=== PATIENT | male | born 1975 | race Caucasian/White ===

== ENCOUNTER 2017-04-28 11:00 | Emergency (ER) | payer BC ==
[2017-04-28] MEDS ORDERED: METOPROLOL TARTRATE 5 MG/5 ML SOL IV ONE ×2 (11:10)
[2017-04-28] MEDS ORDERED: METOPROLOL TARTRATE 5 MG/5 ML SOL IV SCH (11:15)
[2017-04-28] MEDS ORDERED: METOPROLOL TARTRATE 25 MG TAB ONE (11:20)
[2017-04-28 11:28] LABS: BASOPHILS % (AUTO) 1 % (0-3); EOSINOPHILS % (AUTO) 4 % (0-9); HEMATOCRIT 49 % (39-53); MEAN CORPUSCULAR HGB CONC 33.9 gm/dl (32.0-36.0); MEAN CORPUSCULAR VOLUME 87 fL (80-100); MONOCYTES % (AUTO) 7.2 % (0-12); NEUTROPHILS % (AUTO) 55.4 % (37-80)
[2017-04-28] MEDS ORDERED: METOPROLOL TARTRATE 50 MG TAB PO SCH (11:30)
[2017-04-28 11:37] LABS: CALCIUM 9.1 mg/dl (8.5-10.1); POTASSIUM 3.8 mMol/L (3.5-5.1)
[2017-04-28 12:39] VITALS: RESP 16
[2017-04-28 12:40] VITALS: BP 135/97; PULSE 74; TEMP 98.9; O2SAT 97
== END 2017-04-28 12:25 | disposition home or self-care (01) ==
LOC: ED 11:00
DX: R00.0 Tachycardia, unspecified (principal); R06.02 Shortness of breath; R07.9 Chest pain, unspecified
CPT/HCPCS: 36415; 80048; 85025; 93005; 96374; 99283; 99284